=== PATIENT | female | born 1990 | race Caucasian/White ===

== ENCOUNTER 2016-11-15 04:16 | Emergency (ER) | payer BC ==
--- NOTE | ~2016-11-15 | ER ---
PATIENT'S NAME: LIBBY STAUFFER [facility] AGE: 26 Y [address] ROOM: [place] [address] LOCATION: [facility] ADMIT DATE: 11/15/2016 ER/Outpatient Report DISCHARGE DATE: FAMILY PHYSICIAN: PHYSICIAN, NO ATTENDING PHYSICIAN: Nitesh Ramirez Admission date and time were documented in the medical record. I saw the patient at 0430 hours. CHIEF COMPLAINT: Left low back pain. HISTORY OF PRESENT ILLNESS: The patient is a 26-year-old female, who was woken from sleep around 0230 hours with left low back pain. Pain was constant for about half hour, but since then, it kind of comes and goes in waves. No radiation of the pain. No chest pain or shortness of breath. No lightheadedness, dizziness, syncope, or near syncope. No headache; eyes, ears, nose, throat, neck, or spine pain. No fall or trauma. No recent colds, coughs, flus, fever, chills, or sweats. No abdominal pain, nausea, vomiting, or diarrhea. No urinary frequency, urgency, or dysuria. No joint or muscle swelling, redness, or pain. No skin eruptions or rash. No neuro changes or psych issues or endocrine problems. HOME MEDICATIONS: control pill. ALLERGIES: NONE. SOCIAL HISTORY: Nonsmoker. Occasional intake of alcohol. PAST MEDICAL HISTORY: No significant past medical history. OPERATIONS: Appendectomy. REVIEW OF SYSTEMS: All systems were reviewed by me and are negative with the exception of those discussed in the history of the present illness. PHYSICAL EXAMINATION: VITAL SIGNS: Temperature was 98.8 tympanic, pulse was 102, respirations were 16, blood pressure was 130/91, and O2 saturation on room air is 97%. PATIENT'S NAME: LIBBY STAUFFER [facility] AGE: 26 Y [address] ROOM: [place] [address] LOCATION: [facility] ADMIT DATE: 11/15/2016 ER/Outpatient Report DISCHARGE DATE: FAMILY PHYSICIAN: PHYSICIAN, NO ATTENDING PHYSICIAN: Nitesh Ramirez HEAD: Normocephalic. EYES, EARS, NOSE, AND THROAT: Clear. Mucous membranes were moist. NECK: No nuchal rigidity. No findings of adenopathy. No tenderness. SPINE: Negative. LUNGS: Clear. Good air flow. No rales, rhonchi, or wheezes. HEART: Regular. Pulses are palpable. ABDOMEN: Soft. Some tenderness in the left abdomen or left CVA area. No true guarding or rigidity. No rebound tenderness. Active bowel tones. No palpable masses. No organomegaly. EXTREMITIES: Intact. NEUROVASCULAR: Intact. SKIN: Clear. No skin eruptions or rash. LABORATORY DATA: White count is 10,700, 55 segs, 32 lymphs, 8 monos, 4 eos, 1 baso, hemoglobin is 14 with hematocrit of 42.9, and platelet count was 277,000. CMS was normal except for a low CO2 content of 21. Urine showed 0 to 2 whites, 2 to 5 reds, 0 to 2 epithelial cells, few bacteria, 0 to 2 Trichomonas, and nitrites negative. DIAGNOSTIC STUDIES: CT scan of the abdomen and pelvis with renal stone protocol showed no evidence of nephrolithiasis, hydronephrosis, or any other abnormality. CT scans read by Radiology, see dictated transcribed report. IMPRESSION: 1. Left-sided abdominal pain. 2. Left flank CVA tenderness, etiology uncertain, most likely infective. PLAN: The patient was given IV normal saline, fluids, and 30 mg of Toradol IV in the Emergency Department. Dismissed home. Observation. Activity as tolerated. Continue present home medications and care. Fluids and diet as tolerated. Toradol 10 mg one every 6 hours x12 doses, doxycycline 100 mg twice a day #20, and metronidazole 500 mg b.i.d. #14. Follow up with personal physician as needed. Discussion was ensued with the patient concerning my findings and recommendations, she understands. NITESH RAMIREZ MD SDS/modl PATIENT'S NAME: LIBBY STAUFFER [facility] AGE: 26 Y [address] ROOM: [place], [place] [address] LOCATION: [facility] ADMIT DATE: 11/15/2016 ER/Outpatient Report DISCHARGE DATE: FAMILY PHYSICIAN: PHYSICIAN, NO ATTENDING PHYSICIAN: Nitesh Ramirez /[id number] d: 11/15/16707 t: 11/15/16 1809, OUTPATIENT REPORT
[2016-11-15 04:41] LABS: BILIRUBIN URINE NEGATIVE (NEGATIVE); BLOOD URINE 25 /UL (NEGATIVE); GLUCOSE URINE NEGATIVE (NEGATIVE); KETONE URINE 5 mg/dL (NEGATIVE); LEUKOCYTES URINE 25 /UL (NEGATIVE); NITRITE URINE NEGATIVE (NEGATIVE); PROTEIN URINE 15 mg/dL (NEGATIVE); SPEC GRAVITY URINE 1.025 (1.003-1.035); UROBILINOGEN URINE 1 mg/dL (NORMAL)
[2016-11-15 04:42] LABS: COLOR URINE YELLOW (YELLOW); TURBIDITY URINE CLEAR (CLEAR)
[2016-11-15 04:59] LABS: BACTERIA URINE FEW (NEGATIVE); EPITHELIAL URINE 0-2 #/HPF (NEGATIVE); WBC URINE 0-2 #/HPF (NEGATIVE)
[2016-11-15 05:00] LABS: TRICHOMONAS URINE 0-2 #/HPF (NEGATIVE)
[2016-11-15 05:18] LABS: BASOPHIL # 0.1 K/uL (0.0-0.2); EOSINOPHIL # 0.5 K/uL (0.0-0.5); EOSINOPHIL % 4.2 %; HEMATOCRIT 42.9 % (33.0-46.0); IMMATURE GRANULOCYTE % 0.2 %; LYMPHOCYTE # 3.4 K/uL (0.8-4.0); LYMPHOCYTE % 32.1 %; MCH 30.4 pg (27.0-34.0); MCHC 32.6 gm/dL (32.0-36.5); MCV 93.1 fl (83.0-98.0); MONOCYTE # 0.9 K/uL (0.0-1.0); MPV 10.1 fl (9.4-12.4); NEUTROPHIL # (ANC) 5.8 K/uL (1.8-7.8); NEUTROPHIL % 54.5 %; NRBC % 0 /100WBC (0-0.00); PLATELET COUNT 277 K/uL (150-450); RBC 4.61 M/uL (3.50-5.00); RDW-CV 12.2 % (11.9-14.6); WBC 10.7 K/uL (4.0-11.0)
[2016-11-15 05:35] LABS: ALBUMIN 3.3 gm/dL (3.5-5.0); ALK PHOS 113 IU/L (33-138); ALT 35 IU/L (12-78); ANION GAP 15.3 (10.0-19.0); AST 21 IU/L (10-40); BLOOD UREA NITROGEN 14 mg/dL (6-24); CALCIUM 8.6 mg/dL (8.5-10.5); CHLORIDE 110 mMol/L (96-110); CO2 21 mMol/L (22-32); CREATININE 0.8 mg/dL (0.5-1.1); ESTIMATED GFR (MDRD EQUATION) > 60; POTASSIUM 4.3 mMol/L (3.7-5.1); SODIUM 142 mMol/L (135-145); TOTAL BILIRUBIN 0.5 mg/dL (0.0-1.5)
== END 2016-11-15 06:18 | disposition disaster alternative care site (69) ==
LOC: GMED 04:16
PROVIDERS: Emergency Medicine
DX: R10.9 Unspecified abdominal pain (principal); Z90.49 Acquired absence of other specified parts of digestive tract
CPT/HCPCS: J1885; J2405; J7030